=== PATIENT | female | born 1980 | race American Indian/Alaskan Native ===

== ENCOUNTER 2021-09-11 15:43 | Emergency (ER) | payer OTHER ==
[2021-09-11 16:08] VITALS: BP 169/126; PULSE 98
[2021-09-11] MEDS ORDERED: Bacitracin Oint 1 GM U/D Packet TOP ONE (16:27)
[2021-09-11] MEDS ORDERED: Lidocaine 1% 50 MG/5 ML Syringe IVPUSH ONE (16:39)
[2021-09-11] MEDS ORDERED: Diphtheria,Pertussis(Acell),Tetanus Vaccine 0.5 ML Syringe IM ONE (16:40)
[2021-09-11] MEDS ORDERED: Lidocaine 1% 30 ML SDV INJECT ONE (16:43)
== END 2021-09-11 17:25 | disposition home or self-care (01) ==
LOC: DL.ED 15:43
DX: S51.812A Laceration without foreign body of left forearm, initial encounter (principal); Z23 Encounter for immunization; W26.9XXA Contact with unspecified sharp object(s), initial encounter
CPT/HCPCS: 12002; 90471; 90715; 99282; 99283

== ENCOUNTER 2023-09-11 14:40 | Observation (INO) | payer MEDICAID ==
[2023-09-11 15:49] LABS: BASE EXCESS VENOUS 1.5 mmol/l ((-2)-(+3)); BICARBONATE,VENOUS 27 mmol/l (19-25); O2 DELIVERY DEVICE ROOM AIR; O2 SATURATION VENOUS 54.6 % (60-80); PCO2 VENOUS 49 mmHg (41-51); PH,VENOUS 7.36 (7.31-7.41); PO2 VENOUS 35 mmHg (35-42)
[2023-09-11] MEDS: Sodium Chloride 0.9% 1,000 ML IV ONE (16:24)
[2023-09-11 17:10] LABS: BASOPHILS PERCENT AUTO 0.1 % (0.0-1.0); HEMATOCRIT 42.3 % (37.0-47.0); HEMOGLOBIN 14.5 g/dL (12.0-16.0); LYMPHOCYTES PERCENT AUTO 7.3 % (20.5-50.1); MEAN CORPUSCULAR HGB CONC 34.3 g/dL (33.0-35.0); MEAN CORPUSCULAR VOLUME 87.6 fL (80-100); MONOCYTES PERCENT AUTO 2.1 % (2-8); NEUTROPHILS PERCENT AUTO 90.5 % (42.2-75.2); PLATELET COUNT,PLT 639 10^3/uL (150-450); RED BLOOD CELL COUNT 4.83 10^6/uL (4.2-5.4)
[2023-09-11 17:19] LABS: A/G RATIO 1.1; ALANINE AMINOTRANSFERASE,ALT 35 U/L (14-59); ALBUMIN 4.3 g/dL (3.4-5.0); ALKALINE PHOSPHATASE 103 U/L (46-116); ANION GAP 18.6 mEq/L (7-13); ASPARTATE AMNIOTRANSFERASE,AST 17 U/L (15-37); BILIRUBIN TOTAL 0.2 mg/dL (0.2-1.0); BLOOD UREA NITROGEN,BUN 11 mg/dL (7-18); BUN/CREATININE RATIO 7.2 (No establ ref range); CALCIUM 9.1 mg/dL (8.5-10.1); CARBON DIOXIDE,CO2 24 mmol/L (21-32); CHLORIDE,CL 103 mmol/L (98-107); CREATININE 1.52 mg/dL (0.55-1.02); GLUCOSE RANDOM 138 mg/dL (70-99); POTASSIUM,K 3.6 mmol/L (3.5-5.1); PROTEIN TOTAL,TP 8.3 g/dL (6.4-8.2); SODIUM,NA 142 mmol/L (136-145)
[2023-09-11 17:20] LABS: ESTIMATED GFR 44 mL/min (>=60)
[2023-09-11 17:32] LABS: AMPHETAMINES,URINE NEGATIVE (NEGATIVE); BARBITURATES,URINE NEGATIVE (NEGATIVE); BENZODIAZEPINE,URINE NEGATIVE (NEGATIVE); MDMA (ECSTASY), URINE NEGATIVE (NEGATIVE); METHADONE,URINE NEGATIVE (NEGATIVE); METHAMPHETAMINES,URINE NEGATIVE (NEGATIVE); OPIATES,URINE NEGATIVE (NEGATIVE); OXYCODONE,URINE NEGATIVE (NEGATIVE); PHENCYCLIDINE,URINE NEGATIVE (NEGATIVE); TCA,URINE NEGATIVE (NEGATIVE)
[2023-09-11] MEDS ORDERED: Naloxone 2 MG/2 ML Syringe IVPUSH PRN (17:46)
[2023-09-11] MEDS: Morphine 2 MG/ML SYRINGE IVPUSH ONE (17:52)
[2023-09-11] MEDS: Ondansetron 4 MG in Sodium Chloride 0.9% 50 ML IV ONE (18:05)
[2023-09-11] MEDS: Famotidine 20 MG/2 ML SDV IVPUSH ONE (18:05)
[2023-09-11] MEDS: LORazepam 2 MG/ML SDV IVPUSH ONE (20:04)
[2023-09-11] MEDS: Check Patch TRDERM SCH (20:05)
[2023-09-11] MEDS: Vitamin B6-pyridOXINE 100 MG Tab PO SCH (20:31)
[2023-09-11] MEDS: Ketorolac 30 MG/ML SDV ONE (23:59)
[2023-09-11] MEDS: Ketorolac 30 MG/ML SDV IVPUSH ONE (23:59)
[2023-09-12] MEDS: Ketorolac 30 MG/ML SDV IVPUSH PRN (08:08)
[2023-09-12] MEDS: Enoxaparin 40 MG/0.4 ML Syringe SUBCUT SCH (08:14)
[2023-09-12] MEDS: Nicotine 7 MG/24 Hr Patch TRDERM SCH (08:16)
[2023-09-12] MEDS: MVI, Adult with Vitamin K 10 ML, Thiamine 100 MG in Sodium Chloride 0.9% 1,000 ML IV SCH (08:19)
[2023-09-12] MEDS: Acetaminophen 325 MG Tab PO ONE (11:29)
[2023-09-12] MEDS: Ondansetron 4 MG Tab.DIS PO PRN (13:56)
[2023-09-12] MEDS: Ketorolac 30 MG/ML SDV IVPUSH ONE ×2 (16:27→16:39)
[2023-09-12 16:33] VITALS: BP 108/51; PULSE 70
== END 2023-09-12 18:30 | disposition home or self-care (01) ==
LOC: DL.ED 14:40 → DL.MS 18:17 → INTOOBSV 18:17
PROVIDERS: ADMIT Internal Medicine; ATTEND Internal Medicine
DX: T51.2X2A Toxic effect of 2-Propanol, intentional self-harm, initial encounter (principal); N17.9 Acute kidney failure, unspecified; I10 Essential (primary) hypertension; F41.9 Anxiety disorder, unspecified; Z79.899 Other long term (current) drug therapy
CPT/HCPCS: 36415; 70450; 80053; 80305; 80307; 82803; 83605; 84703; 85025; 96361; 96365; 96368; 96375; 99223; 99239; 99285; A9270; J1650; J1885; J2270; J2405; J3411; J3490; J7030